=== PATIENT | male | born 1995 | race Caucasian/White ===

== ENCOUNTER 2019-01-15 12:53 | Emergency (ER) | payer OTHER, SELFPAY ==
[2019-01-15 12:54] VITALS: BP 157/81; PULSE 91; RESP 14; TEMP 36.7; O2SAT 99; BMI 25.7
--- NOTE | 2019-01-15 13:03 | ED.VISSUMM ---
- ER Visit Summary Date of Service: 01/15/19 Chief Complaint: Left ankle redness History of Present Illness: The patient is a 23 M presents to the emergency department with ankle redness. Patient states of the past week, has had some increasing redness around his ankle. He states initially, the area was itching. He states that he was scratching it. Shortly thereafter, it became more red and swollen. He denies any injury. Patient has no history of immunosuppression. He denies any history of IV drug abuse. He denies any fevers or chills. He is still able to ambulate, but does admit to some pain. Physical Examination: Vital signs reviewed General: Well-nourished, well-developed Head: Normocephalic, atraumatic Eyes: Pupils equal and reactive, extraocular muscles intact Neck, supple, no lymphadenopathy Heart: Regular rate and rhythm Respiratory: No distress, clear bilaterally Abdomen: Soft, nontender, nondistended, no peritoneal signs Back: Nontender Extremities: Nontender, specialty mild erythema over the medial malleolus. No pain with smaller range of motion. Some cellulitic changes of the anterior vyas. Normal pulses. Compartments soft. Skin: Normal color no rash Neuro: Alert and oriented, no focal or lateralizing deficits Test Results: [] Emergency Department Course and Treatment: The patient presents with erythema over the lower extremity. His pulses are normal. His compartments are soft. I did want to rule out DVT. The patient states he does not want an ultrasound. He states he cannot afford it. I did offer him other workup including x-ray. He is blatantly refusing. I do feel the most prudent thing would be to treat him with antibiotics for cellulitis. I did adoption counselor him that we are not able to rule out some other dangerous processes. The patient states he is not going to stay. We will place him on Bactrim and Keflex. I did tell him this needs to be reevaluated within the next 48 hours. The patient is aware of the risk and will leave AGAINST MEDICAL ADVICE. Treatment Plan: [] Disposition: AMA Impression: 1. Left lower extremity cellulitis This note was generated with [employer] software. It may contain incorrect words, spelling, and punctuation that were not noted in review of the chart prior to signing ED Disposition - Plan for ED Patient: Instructions: ED Infec Skin Cellulitis Prescriptions: Cephalexin [Keflex] 500 mg PO Q6 #40 cap Smz/Tmp Ds [Bactrim Ds] 1 tab PO BID #14 tab Referrals: Orion Orellana MD [Primary Care Provider] - 2 Days for wound check
[2019-01-15 13:59] VITALS: PULSE 72; RESP 18; O2SAT 97
== END 2019-01-15 13:59 | disposition left against medical advice (07) ==
LOC: ED 13:31
PROVIDERS: Emergency Provider Emergency Medicine; Family Provider Family Medicine; PCP Family Medicine
DX: L03.116 Cellulitis of left lower limb (principal)
CPT/HCPCS: 99282

== ENCOUNTER 2019-09-17 09:40 | Emergency (ER) | payer SELFPAY ==
[2019-09-17 09:41] VITALS: BP 164/89; PULSE 89; RESP 16; TEMP 36.4; O2SAT 100; BMI 25.7
--- NOTE | 2019-09-17 09:54 | RAD_ITS ---
STUDY: X-RAY - RIGHT HAND REASON FOR EXAM: Male, 24 years old. Laceration of the anterior thumb. TECHNIQUE: 3 view(s) of the hand. COMPARISON: None. FINDINGS: Normal radiocarpal articulation. Normal distal radioulnar joint. Normal visualized carpal bones. Normal carpal articulations Normal carpometacarpal articulation of the thumb. Normal second through fifth carpometacarpal joints. Normal metacarpi. Normal metacarpophalangeal joint of the thumb. Normal interphalangeal joint of the thumb. Normal proximal and distal phalanges of the thumb. Normal metacarpophalangeal joints of the second through fifth fingers. Normal proximal and distal interphalangeal joints of the second through fifth fingers. Normal phalanges of the second through fifth fingers. Soft tissue laceration in the region of the thenar space. No radiopaque foreign body is seen. RAD/Hand Min 3 Views IMPRESSION: Soft tissue laceration of the thenar space. Electronically Signed: Felipe Ramirez, at 11:21 EST , Service support ,
--- NOTE | 2019-09-17 09:56 | ED.VIS.GEN ---
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, piece of metal struck flung off of the equipment and struck him over the flexor surface of the right thumb and then he inadvertently struck his left ulnar side hand over a fusion juncture grinder suffering laceration here, Indicates he cannot flex at the right thumb IP joint since this occurred his finger function is normal he has no wrist pain no elbow pain and he has the abrasion or laceration over the left hand as above his tetanus status is not up-to-date he has no past history he is right-hand dominant Past Medical History - Allergies and Home Meds Allergies/Adverse Reactions: Allergies No Known Allergies Allergy (Verified 01/15/19 12:54) Primary Care Physician: Orion Orellana MD [Primary Care Provider] - Past Medical History: None Smoking Status: Current every day smoker Review of Systems General: Denies: Chills, Fever, Sweats Eyes: Denies: Visual changes - bilaterally, Diplopia ENT: Denies: Rhinorrhea, Sore throat Cardiovascular: Denies: Chest pain, Palpitations Respiratory: Denies: Dyspnea, Cough, Dyspnea on exertion Gastrointestinal: Denies: Abdominal pain, Nausea, Vomiting, Diarrhea, Melena, Hematochezia Genitourinary: Denies: Dysuria, Hematuria, Frequency Musculoskeletal: Reports: - - Right thumb laceration left lateral hand laceration. Denies: Back pain, Extremity Pain Skin: Denies: Rash, Wounds Neurological: Denies: Headache, Weakness, Numbness Physical Exam Vital Signs/Narrative: Vital Signs Temp Pulse Resp BP Pulse Ox 09/17/19 09:41 97.6 F L 89 16 164/89 H 100 General: Well nourished, Well developed, No Acute Distress Head: Normocephalic, Atraumatic Eyes: Perrl, EOMI ENT: Moist mucous membranes, No rhinorrhea Neck: Supple, Nontender Cardiovascular: Regular rate, Regular rhythm, No murmurs Respiratory: No distress, CTA bilaterally, Chest nontender Abdomen: Soft, Nontender, Nondistended, Normal bowel sounds Back: Nontender, Normal Inspection Extremities: No edema, - - To the right hand right thumb there is a linear vertically oriented laceration to the flexor surface of the thumb that appears to involve the IP joint slightly, he is unable to flex at the IP joint he can extend the IP joint the nail nailbed are intact he has a little bit of numbness to the tip of his thumb but it intact the pad of the thumb is intact the thumb MCP joint flexion is normal finger flexion wrist function forearm unremarkable radial pulse normal, left hand he has a V-shaped type laceration or abrasion to the left hand that appears to be well approximated I cannot pull it apart and hand function is normal Skin: Normal color, No rash Neurological: Alert, Oriented x3, Cranial nerves II-XII grossly intact, Normal Strength, Normal Sensation Psychological: Normal affect, Normal Mood Diagnostic/Tx/Re-eval - Medical Decision Making Given all of the above x-rays are obtained reining labs IV antibiotics, the right thumb laceration was cleansed irrigated will discussed with hand service Patient's right hand x-ray shows no obvious fracture, he declined the left hand x-ray, he has been started on IV fluids IV antibiotics screening labs are unremarkable, we spoke with Dr. Nugent [facility] service [facility] he agrees to see the patient today at 3 PM in the office we did cleanse and irrigate the wound we applied a loose dressing explained all the above the patient thumb spica splint premade type applied Keflex 500 3 times daily in the understanding to follow-up with orthopedics today for further management and understands the concept of the tendinous injury that could be open Home stable to follow-up with [facility] today Impression final right thumb injury laceration with tendon involvement, left hand laceration ED Disposition - Plan for ED Patient: Instructions: LACERATION, All, LACERATION, Hand Prescriptions: Cephalexin [Keflex] 500 mg PO Q6 #40 cap Prescription Printed Hydrocodone Bitart/Apap 5-325 [Gillespie 5MG-325MG] 1 tab PO Q4H PRN PRN 2 Days #10 tab PRN Reason: Pain Prescription Printed Referrals: Orion Orellana MD [Primary Care Provider] - Additional Instructions: Follow up with Dr. Roman [facility], [phone] 2-day call for an appointment for 3 PM today keep the hand dressing in place until seen for follow-up you must be seen today because you have an open possible tendon injury
[2019-09-17] MEDS: Cefazolin 2 GM in 0.9% Normal Saline 100 ML IV (10:17)
[2019-09-17 10:29] LABS: Absolute Lymphocyte Count 2.63 X10^3/uL (0.83-4.51); Absolute Neutrophil Count 8.1 X10^3/uL (2.0-7.7); Basophil# 0.06 X10^3/uL; Basophil% 0.5 % (0-1); Eosinophil# 0.67 X10^3/uL; Eosinophils% 5.3 % (0-5); Hematocrit 46.8 % (40-54); Hemoglobin 15.8 g/dL (13.0-16.5); Lymphocyte # 2.63 X10^3/ul (4.0); Lymphocyte % 20.9 % (19-41); Mean Corp Hgb Conc 33.8 g/dL (32-36); Mean Corpuscular Hgb 30.3 pg (27.0-32.0); Mean Corpuscular Volume 89.7 fL (80-94); Mean Platelet Vol. 8.7 fl (6.2-12.0); Monocyte# 1.11 X10^3/uL; Monocyte% 8.8 % (0-10); NRBC Flagged by Analyzer 0 % (0-5); Neutrophil % 64.2 % (47-70); Platelet Count 286 K/mm3 (150-450); RBC Distribution Width CV 12.3 % (11.6-14.6); RBC Distribution Width SD 40.4 fl (35.1-43.9); Red Blood Count 5.22 M/mm3 (4.6-6.2); White Blood Count 12.6 K/mm3 (4.4-11.0)
[2019-09-17 10:42] LABS: Anion Gap 5 (5-15); BUN 13 mg/dL (7-18); BUN/Creat Ratio 14.9 RATIO (10-20); Calcium,Total 8.8 mg/dL (8.5-10.1); Chloride 109 mmol/L (98-107); Creatinine, Serum 0.87 mg/dL (0.70-1.30); EST Glomerular Filtration Rate 114 mL/min (>60); Est Glom Filt Rate - Afr Amer 138 mL/min (>60); Glucose 88 mg/dL (74-106); Potassium 3.7 mmol/L (3.5-5.1); Sodium Level 142 mmol/L (136-145)
[2019-09-17] MEDS: Diphth,Pertuss(Acell),Tet Vac 0.5 ML Vial IM (11:16)
== END 2019-09-17 11:24 | disposition home or self-care (01) ==
LOC: ED 10:11
PROVIDERS: Emergency Provider Emergency Medicine; Family Provider Family Medicine; PCP Family Medicine
DX: S61.011A Laceration without foreign body of right thumb without damage to nail, initial encounter (principal); S66.901A Unspecified injury of unspecified muscle, fascia and tendon at wrist and hand level, right hand, initial encounter; S61.412A Laceration without foreign body of left hand, initial encounter; W22.8XXA Striking against or struck by other objects, initial encounter; Y93.9 Activity, unspecified; Y92.9 Unspecified place or not applicable; F17.200 Nicotine dependence, unspecified, uncomplicated
CPT/HCPCS: 73130; 80048; 85025; 90471; 90715; 96365; 99284; J7050; A4216

== ENCOUNTER 2021-03-21 16:22 | Emergency (ER) | payer MEDICAID, SELFPAY ==
[2021-03-21 16:24] VITALS: BP 133/71; PULSE 90; RESP 16; TEMP 37.1; O2SAT 97; BMI 27.7
--- NOTE | 2021-03-21 16:50 | ED.VIS.LOWEX ---
HPI History of Present Illness HPI Narrative: Nontraumatic right lower extremity swelling past 4 days. Reports mild discomfort in the calf initially increased over the past 4 days. States mildly improved swelling with elevation however returned. Denies chest pains or shortness of breath. Denies recent travel, surgeries, or immobilizations. No history of PE or DVT. Denies any family history of known clotting disorders. Denies any past medical history. Denies any history of similar. Chief Complaint: Lower Extremity Injury Informant: patient Onset/Context/Timing Onset: Days (4) PFSH PFSH no medical history Home Medications sulfamethoxazole-trimethoprim 1 tab PO BID #14 tab 01/15/19 [Rx Last Taken Unknown] cephalexin 500 mg PO Q6 #40 cap 09/17/19 [Rx Last Taken Unknown] Allergy/AdvReac Type Severity Reaction Status Date / Time No Known Allergies Allergy Verified 03/21/21 16:23 Social History Smoking Status: Current every day smoker tobacco type: cigarettes ROS ROS ED Constitutional Constitutional ED: Denies chills, fever(s) or sweats Eyes Eyes: Denies change in vision ENT ENT ED: Denies dysphagia or sore throat Cardiovascular Cardiovascular: Denies chest pain, leg edema, palpitations or racing heartbeat Respiratory/Chest Respiratory/Chest: Denies cough, dyspnea or dyspnea on exertion Gastrointestinal Gastrointestinal: Denies abdominal pain, diarrhea, nausea or vomiting Genitourinary Genitourinary ED: Denies dysuria, hematuria or urinary frequency Musculoskeletal Musculoskeletal: Reports other Details: Right lower extremity swelling ; Denies back pain, extremity pain or neck pain Integumentary Denies rash or wounds Neurologic Neurologic: Denies headache(s), paresthesias or weakness EXAM Physical Exam Const Vital Signs: 03/21/21 16:24 Temperature 98.7 F Temperature Source Temporal Pulse Rate 90 Respiratory Rate 16 Blood Pressure 133/71 H Blood Pressure Mean 91 Pulse Ox 97 Oxygen Delivery Method Room Air Positive well nourished and well developed General Appearance ED: well developed and NAD HEENT Reports moist mucous membranes normocephalic and atraumatic Eyes PERRL, EOMs intact bilaterally and conjunctivae normal General Eye ED: Yes normal appearance of both eyes Neck no lymphadenopathy and supple General: Negative for tenderness Chest Wall Chest: Negative for tenderness Resp normal respiratory effort and normal air movement Effort and Inspection: symmetric chest movement; Negative for respiratory distress Cardio regular rate, regular rhythm and no murmurs Peripheral Pulses: pulses 2+ throughout GI normal to inspection, nondistended, normoactive bowel sounds and non-tender Palpation: Negative for guarding or rebound tenderness present Back/Spine no CVA tenderness and no thoracic nor lumbar tenderness Extremity normal to inspection Extremity Narrative: 2+ right lower extremity swelling asymmetric compared to left side. There is calf tenderness. No medial thigh tenderness. Pulses were intact distally. General Extremety ED: Yes edema; Negative for tenderness General Extremity: edema Neuro oriented x3 and no sensory deficits noted Sensorium / Orientation: awake and alert Skin no rashes or lesions noted and no wounds MDM MDM MDM Narrative Medical decision making narrative: Patient with atraumatic right lower extremity swelling. He has calf tenderness. His pulses are intact. Currently with no ultrasound available due to weekend and time. Patient covered with 1.5 mg/kg Lovenox dosing for coverage for 24 hours. Ultrasound ordered in the system for patient to return tomorrow for the ultrasound. Discharge Plan Triage Chief Complaint: Lower Extremity Injury ED Provider: Juarez Moss Dx/Rx/DC Orders Clinical Impression: Localized swelling of right lower leg Instructions: ED Peripheral Edema, Unilateral Prescriptions: No Action sulfamethoxazole-trimethoprim 1 TABLET tablet 1 tab PO BID Qty: 14 RF: 0 cephalexin 500 MG capsule 500 mg PO Q6 Qty: 40 RF: 0 Primary Care Provider: NOT,DEFINED Referrals: NOT,DEFINED [Primary Care Provider] - (plan to return tomorrow for official ultrasound.) Activity Restrictions/Additional Instructions: Ultrasound ordered in the system, return for ultrasound tomorrow. Disposition Disposition: Home, self care
[2021-03-21] MEDS: Enoxaparin 150 MG/ML Syringe SC (17:04)
== END 2021-03-21 17:09 | disposition home or self-care (01) ==
LOC: ED 17:02
PROVIDERS: Emergency Provider Emergency Medicine
DX: R22.41 Localized swelling, mass and lump, right lower limb (principal); F17.210 Nicotine dependence, cigarettes, uncomplicated
CPT/HCPCS: 96374; 99282

== ENCOUNTER → 2021-03-22 10:14 | Outpatient (CLI) | payer MEDICAID, SELFPAY ==
[2021-03-21 16:24] VITALS: BMI 27.7
== END ==
PROVIDERS: Visit Provider Emergency Medicine
DX: M79.89 Other specified soft tissue disorders (principal)
CPT/HCPCS: 93971

== ENCOUNTER 2021-03-24 11:53 | Emergency (ER) | payer MEDICAID, SELFPAY ==
[2021-03-24 11:54] VITALS: BP 122/84; PULSE 103; RESP 6; TEMP 36.9; O2SAT 97; BMI 27.1
--- NOTE | 2021-03-24 12:10 | EX.ED.DYSGE1 ---
HPI History of Present Illness Chief Complaint: Lower Extremity Injury Narrative Narrative: Redness and swelling to the right lower extremity recent redness and swelling to the left lower extremity resolved after Bactrim and Keflex use, he has had swelling of his lower extremities with redness for about a week he was seen in the emergency department and put on Keflex and Bactrim, he had a duplex scan Tuesday related to swelling in the right leg that duplex scan is read as negative left proximal scan showed no DVT proximally, he has no history of DVT no history of immunocompromising issues MRSA or cellulitis he is wearing flip-flops shoes and his toes are excoriated from local trauma he has no history of diabetes he is eating and drinking well no fever no cough he indicates he was not given a follow-up physician when he was here last in the emergency department [facility] Home Medications sulfamethoxazole-trimethoprim 1 tab PO BID #14 tab 01/15/19 [Rx Last Taken Unknown] cephalexin 500 mg PO Q6 #40 cap 09/17/19 [Rx Last Taken Unknown] cephalexin 500 mg PO Q6 #40 capsule 03/24/21 [Rx Last Taken Unknown] sulfamethoxazole-trimethoprim 1 tab PO BID #14 tablet 03/24/21 [Rx Last Taken Unknown] Allergy/AdvReac Type Severity Reaction Status Date / Time No Known Allergies Allergy Verified 03/21/21 16:23 Social History Smoking Status: Current every day smoker tobacco type: cigarettes ROS ROS ED ROS Narrative Only complaint is some mild redness to the right lower extremity and the persistence of the edema Constitutional Constitutional ED: Reports subjective, sweats and other; Denies chills, fever(s) or weight loss Eyes Eyes: Denies blurry vision or change in vision ENT ENT ED: Denies ear pain Cardiovascular Cardiovascular: Denies chest pain or palpitations Respiratory/Chest Respiratory/Chest: Denies dyspnea Gastrointestinal Gastrointestinal: Denies abdominal pain, nausea or vomiting Genitourinary Genitourinary ED: Denies dysuria or hematuria Musculoskeletal Musculoskeletal: Denies arthralgias or myalgias Integumentary Reports rash; Denies abscess Neurologic Neurologic: Denies weakness Psychiatric Psychiatric: Denies anxiety or depression Endocrine Endocrinology: Denies polydipsia or polyuria Allergic/Immunologic Allergic/Immunologic ED: Denies urticaria EXAM Physical Exam Narrative Exam Narrative: About 2+ edema to the right lower extremity there is a little bit of redness nothing major there is no warmth crepitance subcu air strong pulses good cap refill to all toes, the tips of his toes are excoriated from abrasions again there is been no trauma there is no subcu air gas discomfort full range of motion of all major joints and no major change in speech began a week ago Const Vital Signs: 03/24/21 11:54 Temperature 98.4 F Temperature Source Oral Pulse Rate 103 H Respiratory Rate 6 L Blood Pressure 122/84 H Blood Pressure Mean 96 Pulse Ox 97 Oxygen Delivery Method Room Air MDM MDM MDM Narrative Medical decision making narrative: Patient's PTT is 131 but he just ate a sugary beverage, he has a history of diabetes discussed the management he is comfortable with Rocephin 1 g IM follow-up with his outpatient providers he will be provided referrals, cyst Keflex Bactrim which helped for elevation, apparently has not followed up as instructed in the past I explained to him and his girlfriend that he must follow-up acutely elevated he must clean his feet he should consider avoiding using the flip-flops and wearing shoes that protect his toes and his feet and follow-up with his physicians and return for change in symptoms, I explained to him I do not believe he requires ED labs or x-rays he agrees with that and concurs and will follow up Home stable Final impression right lower extremity edema with possible early cellulitis, abrasions to the toes related to footwear Discharge Plan Triage Chief Complaint: Lower Extremity Injury ED Provider: Mayelin Bloom Dx/Rx/DC Orders Clinical Impression: Localized swelling of right lower leg, Cellulitis Instructions: ED Cellulitis Prescriptions: New sulfamethoxazole-trimethoprim [sulfamethoxazole-trimethoprim] 1 TABLET tablet 1 tab PO BID Qty: 14 RF: 0 cephalexin [cephalexin] 500 MG capsule 500 mg PO Q6 Qty: 40 RF: 0 No Action sulfamethoxazole-trimethoprim 1 TABLET tablet 1 tab PO BID Qty: 14 RF: 0 cephalexin 500 MG capsule 500 mg PO Q6 Qty: 40 RF: 0 Primary Care Provider: Care Physician,No Primary Referrals: Raquel López [NON-STAFF] - Care Physician,No Primary [Primary Care Provider] -
[2021-03-24 12:15] LABS: Bedside Glucose 131 mg/dL (70-110)
[2021-03-24] MEDS: Ceftriaxone 1 GM Vial IM (12:36)
[2021-03-24 12:52] VITALS: PULSE 88; RESP 16; O2SAT 98
--- NOTE | 2021-03-24 12:53 | ED.RN ---
PT WAS OBSERVED FOR SHOT TIME FOR 15 MIN NO REACTION WAS NOTED BY THIS RN. PT D/C.
== END 2021-03-24 12:54 | disposition home or self-care (01) ==
LOC: ED 12:23
PROVIDERS: Emergency Provider Emergency Medicine
DX: R22.41 Localized swelling, mass and lump, right lower limb (principal); F17.210 Nicotine dependence, cigarettes, uncomplicated
CPT/HCPCS: 82962; 96372; 99282

== ENCOUNTER 2022-06-30 13:06 | Emergency (ER) | payer BC, MEDICAID, SELFPAY ==
[2022-06-30 13:07] VITALS: BP 145/73; PULSE 88; RESP 15; TEMP 36.3; O2SAT 100; BMI 30.7
--- NOTE | 2022-06-30 13:28 | EX.ED.DYSGE1 ---
HPI History of Present Illness Chief Complaint: Allergic Reaction Informant: patient Onset/Context/Timing Onset: Yesterday Context: Gradual Onset (after being stung by a bee) Timing: Continuous Quality: swollen, pruritic, sore Location: L hand Current Severity: Moderate Maximum Severity: Moderate Worsened by: nothing Relieved by: nothing, tried benadryl only Associated Symptoms Associated Symptoms: none Narrative Narrative: Patient saw himself get stung by a yellow jacket on the lateral aspect of the left hand yesterday. Subsequently started getting swelling, redness, pruritus. He took a Benadryl last night before he went to bed woke up this morning and it was a little worse no better. He denies development of rash, itching elsewhere. No swelling elsewhere. No dyspnea or lightheadedness or palpitations. He does not recall reactions to bee stings in the past. His itching is more significant than the soreness, everything is localized to the left hand now. PFSH PFSH no medical history Home Medications sulfamethoxazole 800 mg-trimethoprim 160 mg tablet 1 tab PO BID #14 tabs 01/15/19 [Rx Last Taken Unknown] cephalexin 500 mg capsule 500 mg PO Q6 #40 caps 09/17/19 [Rx Last Taken Unknown] cephalexin 500 mg capsule 500 mg PO Q6 #40 CAPSULES 03/24/21 [Rx Last Taken Unknown] sulfamethoxazole 800 mg-trimethoprim 160 mg tablet 1 tab PO BID #14 TABLETS 03/24/21 [Rx Last Taken Unknown] prednisone 20 mg tablet 40 mg PO DAILY #8 TABLETS 06/30/22 [Rx Last Taken Unknown] Allergy/AdvReac Type Severity Reaction Status Date / Time No Known Allergies Allergy Verified 06/30/22 13:07 Social History Smoking Status: Current every day smoker tobacco type: cigarettes ROS ROS ED Constitutional Constitutional ED: Denies chills or fever(s) Musculoskeletal Musculoskeletal: Reports as per HPI and extremity pain; Denies neck pain Integumentary Reports as per HPI, pruritus and rash; Denies Abrasions Neurologic Neurologic: Denies paresthesias or weakness EXAM Physical Exam Const Vital Signs: 06/30/22 13:07 Temperature 97.4 F L Temperature Source Temporal Pulse Rate 88 Respiratory Rate 15 Blood Pressure 145/73 H Blood Pressure Mean 97 Pulse Ox 100 Oxygen Delivery Method Room Air Positive well nourished and well developed General Appearance ED: well developed and NAD Neck full ROM and supple Back/Spine normal ROM and normal to inspection Extremity Extremity Narrative: Left hand redness and swelling see below Neuro oriented x3, no focal motor deficits and no sensory deficits noted Sensorium / Orientation: alert Psych mental status grossly normal and thought process normal Skin no wounds Skin Narrative: Entire left hand excluding fingers is mildly erythematous, swollen, nontender. No focal abscess. No lymphangitis. No epitrochlear lymphadenopathy. Full range of motion throughout all fingers and wrist. MDM MDM MDM Narrative Medical decision making narrative: Patient was offered a Kenalog injection versus prednisone for 5 days, he opted for the prednisone. Given the first dose here. Advised he can use Benadryl in addition. We discussed reasons to return he is not having an anaphylactic reaction however, at this time. Discharge Plan Triage Chief Complaint: Allergic Reaction ED Provider: Hemal Ramirez Dx/Rx/DC Orders Clinical Impression: Local reaction to hymenoptera sting Instructions: ED Insect Sting, Local Reaction Prescriptions: New prednisone 20 mg tablet 40 mg PO DAILY Qty: 8 0RF Rx Instructions: start 07/01 No Action sulfamethoxazole-trimethoprim 1 TABLET tablet 1 tab PO BID Qty: 14 0RF cephalexin 500 MG capsule 500 mg PO Q6 Qty: 40 0RF sulfamethoxazole-trimethoprim [sulfamethoxazole-trimethoprim] 1 TABLET tablet 1 tab PO BID Qty: 14 0RF cephalexin [cephalexin] 500 MG capsule 500 mg PO Q6 Qty: 40 0RF Primary Care Provider: Care Physician,No Primary Referrals: Raquel López [Non-Staff] - As Needed Care Physician,No Primary [Primary Care Provider] - Disposition Disposition: Home, Self Care
[2022-06-30] MEDS: predniSONE 20 MG Tablet 40 MG PO (13:34)
[2022-06-30 13:37] VITALS: RESP 16
== END 2022-06-30 13:40 | disposition home or self-care (01) ==
LOC: ED 13:39
PROVIDERS: Emergency Provider Emergency Medicine; Visit Provider Emergency Medicine
DX: T63.444A Toxic effect of venom of bees, undetermined, initial encounter (principal); F17.210 Nicotine dependence, cigarettes, uncomplicated; L08.9 Local infection of the skin and subcutaneous tissue, unspecified
CPT/HCPCS: 99283

== ENCOUNTER 2023-10-10 17:25 | Emergency (ER) | payer SELFPAY ==
[2023-10-10 17:26] VITALS: BP 161/110; PULSE 80; RESP 14; TEMP 36.3; O2SAT 98; BMI 39.2
--- NOTE | 2023-10-10 17:51 | ED.VIS.DENTA ---
HPI History of Present Illness Chief Complaint: Dental Informant: patient Onset/Context/Timing Onset: Today Narrative Narrative: Patient presents secondary to right lower dental abscess. He states he woke this morning with numbness in the right half of his lower lip and a goose egg along his jaw. He does have a broken tooth on the right lower jawline is been bothering him. He states he can call his dentist tomorrow. PFSH PFSH no medical history Home Medications NK 10/10/23 [History Last Taken Unknown] Allergy/AdvReac Type Severity Reaction Status Date / Time No Known Allergies Allergy Verified 10/10/23 17:26 Family History Father Diabetes Surgical History no surgical history Social History household members: significant other and children housing: house Smoking Status: Current every day smoker tobacco type: cigarettes ROS ROS ED Constitutional Constitutional ED: Denies chills or fever(s) Eyes Eyes: Denies change in vision ENT ENT ED: Reports other Details: Right lower dental pain Cardiovascular Cardiovascular: Denies chest pain Respiratory/Chest Respiratory/Chest: Denies cough or dyspnea Gastrointestinal Gastrointestinal: Denies abdominal pain Integumentary Denies rash Neurologic Neurologic: Denies headache(s) Psychiatric Psychiatric: Denies anxiety or depression EXAM Physical Exam Const Vital Signs: 10/10/23 17:26 Temperature 97.3 F L Temperature Source Temporal Pulse Rate 80 Respiratory Rate 14 Blood Pressure 161/110 H Blood Pressure Mean 127 Pulse Ox 98 Oxygen Delivery Method Room Air Positive well nourished and well developed General Appearance ED: well developed HEENT HEENT Narrative: No obvious facial edema or erythema noted. Intraoral examination reveals the first premolar on the right mandibular surface is broken with mild surrounding gum edema. No trismus. No evidence of Kulwant's angina. Posterior pharynx examination is unremarkable. No evidence of trismus. Eyes EOMs intact bilaterally Neck no lymphadenopathy Chest Wall inspection of chest normal and palpation of chest normal Resp normal respiratory effort and clear to auscultation bilaterally Cardio regular rate, regular rhythm and no murmurs GI non-tender Palpation: soft Extremity normal to inspection Neuro oriented x3 and moves all extremities Psych mental status grossly normal MDM MDM MDM Narrative Medical decision making narrative: Patient treated the course of Jerrell Teran first dose given here. I will also give him a dental referral list if his dentist is unable to see him. Return instructions provided. Discharge Plan Triage Chief Complaint: Dental ED Provider: Allyssa Edwards Dx/Rx/DC Orders Clinical Impression: Odontalgia Instructions: ED Dental Abscess Prescriptions: No Action NK Primary Care Provider: Care Physician,No Primary Referrals: Care Physician,No Primary [Primary Care Provider] - Activity Restrictions/Additional Instructions: Dental list provided. Disposition Disposition: Home, Self Care
[2023-10-10] MEDS: Penicillin Vk 250 MG Tablet 500 MG PO (17:59)
[2023-10-10 18:01] VITALS: BP 128/79; PULSE 82; RESP 16; O2SAT 98
--- OUTSIDE RECORDS SUMMARY | 2023-10-10 18:07 | XMS RPT_ITS | CCD ---
Author Name Unknown Address [address] [place] [address] Organization [facility] Care Team Providers Care Parasitology Teacher Name Role Phone Maria Victoria RICO-CViktoriya Unavailable [phone] Medications Completed/Discontinued Medications Medication Drug Class(es) Dates Sig (Normalized) Sig (Original) acetaminophen 325 mg / HYDROcodone bitartrate 5 mg oral tablet (1 source) Opioid Agonist Start: 09-17-2019 HYDROCODONE-ACETAM INOPHEN 5-325 MG TABS HYDROCODONE-ACETAM INOPHEN [id number] Viktoriya Parkmeo PA-C cephalexin 500 mg oral capsule (1 source) Cephalosporin Antibacterial Start: 09-17-2019 KEFLEX 500 MG CAPS CEPHALEXIN [id number] Viktoriya Mccloudolomeo PA-C Problems Problem Classification Problem Date Documented Da te Episodic/Chronic Open wounds of extremities (2 sources) Open wound of finger with tendon involvement; Translations: [Unspecified open wound of unspecified finger without damage to nail, initial encounter] Onset: 09-17-2019 09-17-2019 Episodic Other injuries and conditions due to external causes (1 source) Injury due to machinery; Translations: [Contact with metalworking machines, initial encounter] Onset: 09-17-2019 09-17-2019 Episodic Unclassified (1 source) Problem Results Test Name Value Interpretation Reference Range Facil ity Vital Signs Date Time Vital Sign Value Performing Clinician Facility NEGATED: Highlighted [id number] 14:21-0500 BMI (Body Mass Index) 25.86 kg/m2 Shirin Meier RT [facility] Work Phone: NEGATED: Highlighted [id number] 14:21-0500 Body weight 86.18 kg Shirin Meier RT [facility] Work Phone: NEGATED: Highlighted [id number] 14:21-0500 Body weight 86 kg Shirin Hardeep RT [facility] Work Phone: NEGATED: Highlighted [id number] 14:21-0500 BP Diastolic 72 mm[Hg] Shirin Meier RT [facility] Work Phone: NEGATED: Highlighted [id number] 14:21-0500 BP Systolic 123 mm[Hg] Shirin Meier RT [facility] Work Phone: NEGATED: Highlighted [id number] 14:21-0500 Height 182.88 cm Shirin Meier RT [facility] Work Phone: NEGATED: Highlighted [id number] 14:21-0500 Height 183 cm Shirin Meier RT [facility] Work Phone: NEGATED: Highlighted [id number] 14:21-0500 Pulse (Heart Rate) 84 /min Shirin Meier RT [facility] Work Phone: Encounters Encounter Date Encounter Type Care Provider Facility Start: 09-17-2019 End: 09-17-2019 Patient encounter procedure Viktoriya Irene PA-C Work Phone: [facility] Work Phone: Procedures Date Procedure Procedure Detail Performing Clinician Start: 09-17-2019 End: 09-17-2019 Blood pressure within normal parameters - no follow-up required Viktoriya Irene PA-C Work Phone: Start: 09-17-2019 End: 09-17-2019 BMI outside of normal parameters - no follow-up plan/reason not given Viktoriya Rogero PA-C Work Phone: Start: 09-17-2019 End: 09-17-2019 Documentation of current medications Viktoriya Irene PA-C Work Phone: Start: 09-17-2019 End: 09-17-2019 Pain assessment documented as positive - follow-up documented Viktoriya Irene PA-C Work Phone: Start: 09-17-2019 End: 09-17-2019 Tobacco screening or cessation counseling not performed - unknown reason Viktoriya Irene PA-C Work Phone: NEGATED: Highlighted rowStart: 09-17-2019 End: 09-17-2019 Documentation of current medications Shirin Meier RT Plan of Treatment Date Care Activity Detail Author Start: 09-17-2019 End: 09-17-2019 Appointment Appointment [facility] Work Phone: Social History Date Type Detail Facility NEGATED: Highlighted rowStart: 09-17-2019 End: 09-17-2019 Alcohol use Alcohol use [facility] Work Phone: NEGATED: Highlighted rowStart: 09-17-2019 End: 09-17-2019 Assertion Current every day smoker [facility] Work Phone: NEGATED: Highlighted rowStart: 09-17-2019 End: 09-17-2019 Details of drug misuse behavior Details of drug misuse behavior [facility] Work Phone: Chief Complaint Chief Complaint Description Start Date right finger pain Preliminary chief co mplaint data, not yet signed by the author as of Advance Directives There may be information available, but it has not been provided by the sender. No Advanced Directives Records Found Assessments There may be information available, but it has not been provided by the sender. Review of System There may be information available, but it has not been provided by the sender. Family History There may be information available, but it has not been provided by the sender.No Family History Records Found History of Present Illness There may be information available, but it has not been provided by the sender. Summary Purpose Additional Source Comments Reason for Visit (unrecogniz ed section and content) (unrecognized sect ion and content) No Status Records Found INFORMATION SOURCE (unrecogn ized section and content) FOR RECORDS PERTAINING TO PATIENTS WHO ARE OR HAVE BEEN ENROLLED IN A CHEMICAL DEPENDENCY/SUBSTANCEABUSE PROGRAM, SOME INFORMATION MAY BE OMITTED. This clinical summary was aggregated from multiple sources. Caution should be exercised in using it in the provision of clinical care. This summary normalizes information from multiple sources, and as a consequence, information in this document may materially change the coding, format and clinical context of patient data. In addition, data may be omitted in some cases. CLINICAL DECISIONS SHOULD BE BASED ON THE PRIMARY CLINICAL RECORDS. [facility] [employer] [facility]. provides no warranty or guarantee of the accuracy or completeness of information in this document.
== END 2023-10-10 18:18 | disposition home or self-care (01) ==
LOC: ED 18:05
PROVIDERS: Emergency Provider Emergency Medicine; Visit Provider Emergency Medicine
DX: K08.89 Other specified disorders of teeth and supporting structures (principal); F17.210 Nicotine dependence, cigarettes, uncomplicated
CPT/HCPCS: 99282